=== PATIENT | male | born 1940 | race African-American/Black ===

== ENCOUNTER 2017-05-27 10:20 | Outpatient (CLI) | payer MEDICARE ==
[2017-05-27 11:47] LABS: Anion Gap 14 mmol/L (10-20); BUN (Urea Nitrogen) 27 mg/dL (8.4-25.7); Calc. Creatinine Clearance 0 mL/min (70-130); Calcium 9.2 mg/dL (7.8-10.44); Carbon Dioxide 25 mmol/L (23-31); Chloride 107 mmol/L (98-107); Estimated GFR-MDRD 29; Glucose 204 mg/dL (83-110); Potassium 5.1 mmol/L (3.5-5.1); Sodium 141 mmol/L (136-145)
== END 2017-05-27 10:21 | disposition home or self-care (01) ==
LOC: NAV LAB 10:20
PROVIDERS: ATTEND Internal Medicine Nephrology
DX: N18.4 Chronic kidney disease, stage 4 (severe) (principal)
CPT/HCPCS: 80048; 83970

== ENCOUNTER 2017-12-20 16:49 | Outpatient (CLI) | payer MEDICARE ==
--- NOTE | 2017-12-20 19:03 | RAD ---
KUB SINGLE VIEW SERIES: 12/20/17 Two views provided. INDICATION: Right kidney stone. FINDINGS: There is bowel content overlying the right renal shadow which limits assessment. There are a few subt le densities overlying t he expected region of the mid to lower right renal shadow which could relate to nephrolithiasis although are difficult to further delineate. There is vascular calcifications and osseous degenerative change. IMPRESSION: Limited evaluation due to prominent overlying fecal material. Subtle densities overlie the right lore l shadow as discussed above. POS: [facility]
== END 2017-12-20 16:50 | disposition home or self-care (01) ==
LOC: NAV RAD 16:49
PROVIDERS: ATTEND Family Medicine
DX: E11.9 Type 2 diabetes mellitus without complications (principal); N28.89 Other specified disorders of kidney and ureter
CPT/HCPCS: 74018

== ENCOUNTER 2018-02-21 16:30 | Outpatient (CLI) | payer MEDICARE ==
--- NOTE | 2018-02-21 16:51 | RAD ---
CHEST TWO VIEWS: 02/21/18 HISTORY: Cough. COMPARISON: 01/30/18. FINDINGS: The cardiac silhouette is unremarkable. Pulmonary vasculature upper limits of normal. Mediastinum mid line with aortic calcifications. No lobar consolidation, pneumothorax or pleural fluid. IMPRESSION: Borderline pulmonary vascular congestion. POS: [facility]
== END 2018-02-21 16:31 | disposition home or self-care (01) ==
LOC: NAV RAD 16:30
PROVIDERS: ATTEND Family Medicine
DX: R05 Cough (principal); R09.89 Other specified symptoms and signs involving the circulatory and respiratory systems
CPT/HCPCS: 71046

== ENCOUNTER 2020-10-09 10:30 | Outpatient (CLI) | payer MEDICARE ==
--- NOTE | 2020-10-09 13:28 | RAD ---
LEFT KNEE 3 VIEWS: HISTORY: Knee pain. FINDINGS: Moderate degenerative changes are noted. Loss of medial joint space. Mild to moderate marginal oste ophytes. Spurring from the tibial spine. Small joint effusion in the suprapatellar region. IMPRESSION: Moderate degenerative changes left knee. POS: [facility]
--- NOTE | 2020-10-09 13:58 | RAD ---
RIGHT KNEE: 10/09/20 Four views. HISTORY: Knee pain. Moderate to severe degenerative change. Loss of both medial and lateral joint space. Prominent margin al osteophytes from the condyles. Spurring and narrowing of the patellofemoral joint. No acute osseou s lesion. No significant effusion apparent. IMPRESSION: Moderate to severe degenerative changes right knee. POS: [facility]
== END 2020-10-09 10:31 | disposition home or self-care (01) ==
LOC: NAV RAD 10:30
PROVIDERS: ATTEND Family Medicine
DX: M25.562 Pain in left knee (principal); M25.561 Pain in right knee; M17.0 Bilateral primary osteoarthritis of knee